=== PATIENT | female | born 1955 | race Caucasian/White ===

== ENCOUNTER → 2016-07-02 | Outpatient (CLI) | payer BC ==
--- NOTE | ~2016-07-02 | CR63 ---
[facility] A Service of [facility] / [facility] RADIOLOGY TEXT RESULTS PATIENT: DAE VENEGAS LOCATION: [facility] #: [id number] : 53 UNIT #: [id number] AGE: [address]: Leah Sinclair APRN SEX: F ORDER DR: [id number] [facility] [address] [place], [place] [address] [id number] O MR#: [id number] Acc #: [id number] NAME: DAE VENEGAS : 1955 SEX: F STUDY DATE/TIME: 07/02/2016 14:29 UNIT: [facility] ROOM: STUDY DESCRIPTION: CR Chest 2 View Attending Physician: Leah Sinclair A.P.R.N. Referring Physician: Leah Sinclair A.P.R.N. Ordering Physician: Leah Sinclair A.P.R.N. Primary Care Physician: Jenniffer Yang M.D. MEDICAL IMAGING REPORT This report is preliminary unless electronic signature is present EXAM PA and lateral chest. HISTORY Recent postop resection of right lung mass and nodules. History of right pneumothorax, shortness of breath, surgery 2 weeks ago. COMPARISON PA and lateral views of the chest are obtained and compared to a previous portable chest of 06/26/2016. FINDINGS The cardiac size is stable. There are postsurgical changes in the right lung. There is a small right pleural effusion present. The left lung is clear. There appears to be at least trace left-sided pleural fluid, as well. CONCLUSION Postsurgical changes in the right hemithorax. Bilateral pleural effusions, right greater than left. Dictated by... Marvin Dickens M.D. THIS IS AN ELECTRONICALLY VERIFIED REPORT Marvin Dickens M.D. at 07/03/2016 7:28 AM CARLOS/kary TD: 07/02/2016 18:06 [facility] A Service of [facility] / [facility] RADIOLOGY TEXT RESULTS PATIENT: DAE VENEGAS LOCATION: [facility] #: [id number] : 53 UNIT #: [id number] AGE: [address]: Leah Sinclair APRN SEX: F ORDER DR: JOB #: [id number] MEDICAL IMAGING REPORT Page 1 of 1 COPY
== END | disposition home or self-care (01) ==
LOC: CRAD 14:14
DX: R91.8 Other nonspecific abnormal finding of lung field (principal); J90 Pleural effusion, not elsewhere classified; Z98.890 Other specified postprocedural states
CPT/HCPCS: 71020

== ENCOUNTER → 2016-07-27 | Outpatient (CLI) | payer BC ==
--- NOTE | ~2016-07-27 | CR63 ---
[facility] A Service of [facility] RADIOLOGY TEXT RESULTS PATIENT: DAE VENEGAS LOCATION: [facility] : 53 UNIT #: [id number] AGE: [address]: FATIMAH HERNDON MD SEX: F ORDER DR: [id number] [facility] [address] [place], [place] [address] [id number] O MR#: [id number] Acc #: [id number] NAME: DAE VENEGAS : 1955 SEX: F STUDY DATE/TIME: 07/27/2016 11:42 UNIT: [facility] ROOM: STUDY DESCRIPTION: CR Chest 2 View Attending Physician: Fatimah Herndon M.D. Referring Physician: Fatimah Herndon M.D. Ordering Physician: Ru Not Listed Primary Care Physician: Jenniffer Yang M.D. MEDICAL IMAGING REPORT This report is preliminary unless electronic signature is present EXAM Chest, 07/27/2016, [facility]. HISTORY 60-year-old female with given history of pneumothorax. Congestion and cough. History of COPD. COMPARISON Chest 07/02/2016. FINDINGS 2-view chest demonstrates normal and stable heart size. Chain sutures project in the right upper lobe. Subpleural bleb, left apex. No pneumothorax identified at this time. Minimal blunting of the right costophrenic angle consistent with a resolving right pleural effusion. No evidence for left pleural effusion at this time. Lungs are hyperinflated, reflecting preexisting COPD. IMPRESSION No residual pneumothorax identified. Resolving or resolved pleural effusions. Preexisting COPD. Previous surgery right upper lobe. Dictated by... Bill Olguin M.D. THIS IS AN ELECTRONICALLY VERIFIED REPORT Bill Olguin M.D. at 07/27/2016 2:19 PM CLAIR/kary TD: 07/27/2016 13:27 JOB #: [id number] [facility] A Service of [facility] RADIOLOGY TEXT RESULTS PATIENT: DAE VENEGAS LOCATION: [facility] #: [id number] : 53 UNIT #: [id number] AGE: [address]: FATIMAH HERNDON MD SEX: F ORDER DR: MEDICAL IMAGING REPORT Page 1 of 1 COPY
== END | disposition home or self-care (01) ==
LOC: CRAD 11:35
DX: J93.83 Other pneumothorax (principal)
CPT/HCPCS: 71020

== ENCOUNTER → 2016-10-08 | Outpatient (CLI) | payer BC ==
--- NOTE | ~2016-10-08 | CT57 ---
[facility] A Service of [facility] RADIOLOGY TEXT RESULTS PATIENT: DAE VENEGAS LOCATION: [facility] : 53 UNIT #: [id number] AGE: [address]: Shaylee Fontenot SEX: F ORDER DR: [id number] [place] [id number] [facility]. [place], [place] [address] [id number] O MR#: [id number] Acc #: [id number] NAME: DAE VENEGAS : 1955 SEX: F STUDY DATE/TIME: 10/08/2016 11:18 UNIT: [facility] ROOM: STUDY DESCRIPTION: CT Chest Wo Cont Attending Physician: Shaylee Fontenot A.P.R.N. Referring Physician: Shaylee Fontenot A.P.R.N. Ordering Physician: Shaylee Fontenot A.P.R.N. Primary Care Physician: Jenniffer Yang M.D. MEDICAL IMAGING REPORT This report is preliminary unless electronic signature is present EXAM CT of the chest without contrast DATE 10/08/2016 HISTORY Shortness of breath since partial right lung resection in June 2016. COMPARISON PA and lateral chest radiograph 07/27/2016. CT chest without contrast 06/19/2016. PROCEDURE 5 mm axial images through the chest without contrast. Sagittal and coronal reformatted images were obtained. This CT exam was performed with one or more of the following radiation dose reduction techniques: Automatic exposure control, adjustment of mA and/or kV according to patient size, and iterative reconstruction. FINDINGS Surgical changes of partial resection in the posterior right upper lobe and superior segment right lower lobe are noted. There is new, wedge-shaped dense alveolar disease in the anteromedial right upper lobe, measuring 3.4 x 2.6 cm in aggregate, with an adjacent noncalcified nodule measuring 7 mm. Severe emphysematous changes are present. There is some chronic scarring in the posterior left lung apex. Previously described spiculated nodule within the superior segment of the left lower lobe on the 06/19/2016 examination has resolved, in keeping with benign infectious-inflammatory etiology. [facility] A Service of [facility] RADIOLOGY TEXT RESULTS PATIENT: DAE VENEGAS LOCATION: [facility] : 53 UNIT #: [id number] AGE: [address]: Shaylee Fontenot SEX: F ORDER DR: 7 mm pleural-based noncalcified nodule in the posterior right lower lobe (image 97) is unchanged from 02/01/2015, most in keeping with a benign etiology. No pathologic adenopathy is seen. Coronary artery calcifications are present. Normal caliber of the thoracic aorta. Left hepatic cysts. Benign left adrenal adenoma (Hounsfield units -3.86). 1.6 cm right renal cyst (Hounsfield units -0.94). No acute or suspicious osseous abnormalities. IMPRESSION 1. Surgical changes of partial right upper lobe and right lower lobe lung resection. 2. Development of 2.6 x 3.4 cm dense alveolar opacity in the anteromedial right upper lobe favored to represent infectious-inflammatory etiology. 7 mm noncalcified nodule is seen adjacent to it. Consider chest CT followup to document improvement or resolution. 3. Previously described spiculated nodule within the left lower lobe on the 06/19/2016 examination has resolved. 4. There is a stable 7 mm pleural-based nodule in the posteromedial right lower lobe since 02/01/2015, suggesting benign etiology. Continued surveillance imaging through January 2017 would be recommended to document 2 years of stability and benignity. 5. Severe emphysema. 6. Additional CT findings include: Right renal cyst, hepatic cysts, left adrenal adenoma, coronary artery calcifications. Dictated by... Chelsea Turcios M.D. THIS IS AN ELECTRONICALLY VERIFIED REPORT Chelsea Turcios M.D. at 10/11/2016 8:52 AM SHANON/dina TD: 10/09/2016 03:16 JOB #: [id number] MEDICAL IMAGING REPORT Page 1 of 1 COPY
== END | disposition home or self-care (01) ==
LOC: CCAT 10:48
DX: R93.8 Abnormal findings on diagnostic imaging of other specified body structures (principal); R91.8 Other nonspecific abnormal finding of lung field; J43.9 Emphysema, unspecified; N28.1 Cyst of kidney, acquired; K76.89 Other specified diseases of liver; D35.02 Benign neoplasm of left adrenal gland; I25.10 Atherosclerotic heart disease of native coronary artery without angina pectoris; Z98.890 Other specified postprocedural states
CPT/HCPCS: 71250